=== PATIENT | female | born 1975 | race Hispanic/Latino ===

== ENCOUNTER 2020-11-03 18:32 | Emergency (ER) | payer BC ==
[2020-11-03] MEDS ORDERED: Proparacaine 0.5% Opth 15 ML BOT ONE (20:02)
== END 2020-11-03 20:07 | disposition home or self-care (01) ==
LOC: CSHERS 18:32
DX: H92.01 Otalgia, right ear (principal); I10 Essential (primary) hypertension
CPT/HCPCS: 99282